=== PATIENT | male | born 1980 | race Caucasian/White ===

== ENCOUNTER 2019-06-22 00:22 | Inpatient (IN) | payer MEDICAID ==
[~2019-06-22] VITALS: Ht 182.9 cm; Wt 76.8 kg
[2019-06-22 01:30] VITALS: BP 128/70
--- NOTE | 2019-06-22 01:30 | NUR ---
MS REPAIRER SCREEN CRUSHER NOTES Received patient direct admit from [facility] via gurney accompanied by 2 underwear trimmer. Admitted to MS 321-1 due to L hand cellulitis under the service of Dr. Branham. Assisted patient to bed comfortably. Admission routine done. Noted ambulatory with steady gait. Belongings inventory completed by the assigned SENIOR UI UX DEVELOPER. Admission orders noted and carried out. Kept L hand clean, dry, and elevated. Provided snacks per patient request. R nares swab for MRSA surveillance done. Kept on bed clean, dry and comfortable. Call light within easy reach. Will continue to monitor accordingly.
[2019-06-22 01:47] VITALS: BP 128/70
[2019-06-22] MEDS ORDERED: MAG HYDROX/AL HYDROX/SIMETH 30 ML UDC PO PRN (03:30)
[2019-06-22] MEDS ORDERED: MAGNESIUM HYDROXIDE 30 ML UDC PO PRN (03:30)
[2019-06-22] MEDS ORDERED: ONDANSETRON HCL/PF 4 MG/2 ML VIAL IVP PRN (03:30)
[2019-06-22] MEDS ORDERED: ACETAMINOPHEN 325 MG TABLET PO PRN (03:30)
[2019-06-22] MEDS ORDERED: Z GUARD REMEDY 2 OZ OINT TP PRN (03:30)
[2019-06-22] MEDS ORDERED: VANCOMYCIN IV ONE (03:30)
[2019-06-22] MEDS ORDERED: NS 0.9% IV ONE (03:30)
[2019-06-22] MEDS ORDERED: CEFTRIAXONE 1 G in IV D5W 50 ML IV SCH ×3 (03:30→07:37)
--- NOTE | 2019-06-22 03:39 | NUR ---
MS RN NOTES Notified pharmacy patient received Rocephin 2gm and Vanco 1250gm from [facility]. Pharmacy adjusted meds schedule accordingly.
[2019-06-22 06:18] LABS: BASOPHILS # (AUTO) 0.1 /CMM (0.0-0.2); BASOPHILS % (AUTO) 0.8 % (0.0-2.0); EOSINOPHILS % (AUTO) 2.5 % (0.0-6.0); HEMATOCRIT 40 % (39-51); HEMOGLOBIN 13.2 g/dL (13.5-17.5); LYMPHOCYTES # (AUTO) 0.8 /CMM (0.8-4.8); LYMPHOCYTES % (AUTO) 7.4 % (20.0-44.0); MEAN CORPUSCULAR HGB CONC 34 g/dl (31.0-36.0); MEAN CORPUSCULAR VOLUME 92 fL (80-96); MONOCYTES # (AUTO) 0.8 /CMM (0.1-1.30); MONOCYTES % (AUTO) 7.8 % (2.0-12.0); NEUTROPHILS # (AUTO) 8.7 /CMM (1.8-8.9); NEUTROPHILS % (AUTO) 81.5 % (43.0-81.0); PLATELET COUNT (AUTO) 238 /CMM (150-450); RED BLOOD CELL COUNT(AUTO) 4.29 MIL/uL (4.5-6.0); WHITE BLOOD COUNT (AUTO) 10.7 K/uL (4.3-11.0)
--- NOTE | 2019-06-22 06:30 | NUR ---
MS RN CLOSING NOTES Patient asleep, easily awaken. On RA, no SOB/respiratory distress noted. All nursing needs attended. No new complaints made, no new unusualities noted. Kept on bed clean, dry and comfortable. Call light within easy reach. Endorsed to the next shift.
[2019-06-22 06:51] LABS: THYROID STIMULATING HORMONE 1.109 uIU/mL (0.358-3.74)
[2019-06-22 06:58] LABS: ALBUMIN 3.2 g/dL (3.4-5.0); BILIRUBIN,TOTAL 0.4 mg/dL (0.2-1.0); CREATININE 0.8 mg/dL (0.6-1.3); MAGNESIUM 1.8 mg/dL (1.8-2.4); POTASSIUM 3.7 mmol/L (3.5-5.1); TOTAL PROTEIN, SERUM 6.5 g/dL (6.4-8.2)
[2019-06-22] MEDS ORDERED: FEE PK DOSING 1 MIN EA MC ONE (07:30)
[2019-06-22 08:00] VITALS: BP 135/88
[2019-06-22] MEDS: HYDROCODONE/APAP 5/325MG 1 EACH TABLET PO PRN ×4 (08:07→22:44)
[2019-06-22] MEDS: VANCOMYCIN 1.25 GM in IV D5W 500 ML IV SCH ×2 (08:34→15:10)
--- NOTE | 2019-06-22 08:43 | NUR ---
c/o pain on Left middle finger, red, swollen, no oozage noted. NORCO one po 5/325mg given. Advised to call if [place] did not relieve pain. Getting first dose of VANCOMYCIN now, 1.25gm ivpb
--- NOTE | 2019-06-22 09:52 | NUR ---
WOUND CARE CONSULT: PT PRESENTS WITH SWELLING AND REDNESS TO LEFT MIDDLE FINGER, PRESENT ON ADMISSION. NO DRAINAGE NOTED. DEFER TO MD. WILL SEE PRN.
--- NOTE | 2019-06-22 12:07 | NUR ---
Social service consult requested by Dr. Rebolledo for homelessness. Per H &P, Pt. is a 39 y/o gentleman with four-day history of cellulitis to the extensor surface predominantly in Zone IV with extension to Zone III of his left middle finger. SW met with the pt. bedside. Pt. is alert and oriented x 4. Pt. appears clean and well-groomed. Pt. has tattoo sleeves on both his arms. Pt's mood is congruent. Pt. is cooperative and pleasant during the assessment. Pt. states he is homeless and has been for the past two months. Pt. was staying with friends prior to being homeless. SW offered pt. [facility] placement, however pt. declined. Pt. is interested in section 8 housing. SW informed pt. to sign up with [facility]. Pt. denies any drug, alcohol and tobacco use. Pt. denies any psychiatric diagnosis and hospitalizations. Pt. declined homeless [facility] and homeless resources. Pt. is interested in getting a TAP card upon discharge. TAP will be provided. No other social service needs are requested at this time. SW is available, if needed.
--- NOTE | 2019-06-22 13:30 | NUR ---
MS RN NOTES-- RECEIVED REPORT FROM REGISTRY NURSE. PT IS A/O X3, AFEBRILE. RESPIRATIONS ARE EVEN AND UNLABORED, NOT IN ANY ACUTE DISTRESS NOTED. PT C/O GENERALIZED PAIN 10/10 AND WILL MEDICATE ACCORDINGLY. PT DENIES ANY SOB, N/V. IV ACCESS TO RAC INTACT, NO INFILTRATION NOTED. DRESSING KEPT CLEAN AND DRY. SAFETY MEASURES ARE IN PLACE. INSTRUCTED PT TO USE CALL LIGHT WHEN ASSISTANCE IS NEEDED, CALL LIGHT IS LEFT WITHIN REACH. WILL MONITOR THROUGHOUT SHIFT FOR CONTINUITY OF CARE.
[2019-06-22] MEDS ORDERED: MORPHINE SULFATE INJ 2 MG/ML DISP.SYRIN IV STA (15:29)
--- NOTE | 2019-06-22 15:47 | NUR ---
MS RN NOTES-- DR. SHINE AT BEDSIDE PERFORMING I&D TO LEFT HAND.
--- NOTE | 2019-06-22 15:48 | NUR ---
MS RN NOTES-- RECEIVED ORDERS PER DR. SHINE FOR LEFT HAND XRAY.
[2019-06-22 16:03] VITALS: BP 120/72
--- NOTE | 2019-06-22 18:34 | NUR ---
MS RN CLOSING NOTES ALL DUE MEDS GIVEN, NEEDS MET AND RENDERED. PT IS A/O X4, AFEBRILE. RESPIRATIONS ARE EVEN AND UNLABORED, NOT IN ANY ACUTE DISTRESS NOTED. DENIES ANY PAIN AT THIS TIME, NO C/O SOB, N/V. IV ACCESS TO RAC INTACT, NO INFILTRATION NOTED. DRESSING KEPT CLEAN AND DRY. SAFETY MEASURES ARE IN PLACE. REMINDED PT TO USE CALL LIGHT WHEN ASSISTANCE IS NEEDED, CALL LIGHT IS LEFT WITHIN REACH.
[2019-06-22 20:00] VITALS: BP 119/74
--- NOTE | 2019-06-22 20:00 | NUR ---
MS RN NOTES RECEIVED PATIENT ASLEEP IN BED WITH NO DISTRESS NOTED. CALL LIGHT WITHIN REACH. PERIPHERAL LINE INTACT AND PATENT. BED IN LOW LOCK SETTING. ROOM FREE OF CLUTTER AND BELONGINGS KEPT NEAR BEDSIDE. WILL CONTINUE TO MONITOR.
[2019-06-22] MEDS: CEFTRIAXONE 1 G in IV D5W 50 ML IV SCH (21:16)
[2019-06-23] MEDS: VANCOMYCIN 1.25 GM in IV D5W 500 ML IV SCH ×3 (00:42→17:27)
[2019-06-23] MEDS: MORPHINE SULFATE INJ 2 MG/ML DISP.SYRIN IV PRN ×2 (03:37→09:17)
--- NOTE | 2019-06-23 06:46 | NUR ---
MS RN NOTES PATIENT ASLEEP IN BED WITH NO DISTRESS NOTED. CALL LIGHT WITHIN REACH. ALL DUE MEDS GIVEN ORDERED WITH NO ASE NOTED. NO FURTHER C/O PAIN OR DISCOMFORT. LEFT HAND DRESSING REMAINS CLEAN, DRY, AND INTACT. PERIPHERAL LINE INTACT AND PATENT. BED IN LOW LOCK SETTING. ROOM FREE OF CLUTTER AND BELONGINGS KEPT NEAR BEDSIDE. WILL CONTINUE TO MONITOR.
[2019-06-23 06:53] LABS: CALCIUM, SERUM 8.4 mg/dL (8.5-10.1); CREATININE 0.8 mg/dL (0.6-1.3); POTASSIUM 4.1 mmol/L (3.5-5.1)
[2019-06-23 06:55] LABS: BASOPHILS # (AUTO) 0.1 /CMM (0.0-0.2); BASOPHILS % (AUTO) 0.6 % (0.0-2.0); EOSINOPHILS % (AUTO) 2.8 % (0.0-6.0); HEMATOCRIT 44 % (39-51); HEMOGLOBIN 14.6 g/dL (13.5-17.5); LYMPHOCYTES # (AUTO) 1.6 /CMM (0.8-4.8); LYMPHOCYTES % (AUTO) 15.4 % (20.0-44.0); MEAN CORPUSCULAR HGB CONC 33 g/dl (31.0-36.0); MEAN CORPUSCULAR VOLUME 94 fL (80-96); MONOCYTES # (AUTO) 1.2 /CMM (0.1-1.30); MONOCYTES % (AUTO) 11.5 % (2.0-12.0); NEUTROPHILS # (AUTO) 7.4 /CMM (1.8-8.9); NEUTROPHILS % (AUTO) 69.7 % (43.0-81.0); PLATELET COUNT (AUTO) 228 /CMM (150-450); RED BLOOD CELL COUNT(AUTO) 4.72 MIL/uL (4.5-6.0); WHITE BLOOD COUNT (AUTO) 10.6 K/uL (4.3-11.0)
--- NOTE | 2019-06-23 07:30 | NUR ---
RN OPENING NOTES RECEIVED PATIENT IN BED RESTING. A/OX4, ABLE TO MAKE NEEDS KNOWN. NOT IN ANY FORM OF DISTRESS, NO SOB, DENIED PAIN OR DISCOMFORT AT THIS TIME. IV ACCESS INTACT AND PATENT. KEP TPATIENT SAFE AND COMFORTABLE. BED IN LOW/LOCKED POSITION, SIDERAILS UPX2, CALL LIGHT IN REACH. WILL CONTINUE TO MONIOTR ACCORDINGLY.
[2019-06-23 08:00] VITALS: BP 134/82
--- NOTE | 2019-06-23 09:10 | NUR ---
RN NOTES VANCO TROUGH TAKEN 06/22 @ 2300 WAS 10. VERIFIED WITH JORDY, PHARMACIST, IF IT'LL COVER FOR TODAY'S DOSE. PER JORDY, OK TO GIVE IT.
[2019-06-23] MEDS: LACTOBACILLUS RHAMNOSUS GG 1 EACH CAP.SPRINK PO SCH ×2 (09:17→17:27)
--- NOTE | 2019-06-23 10:00 | NUR ---
RN NOTES DRESSING CHANGED BY ALIZA SHINE.
[2019-06-23] MEDS: HYDROCODONE/APAP 5/325MG 1 EACH TABLET PO PRN ×2 (14:00→19:45)
[2019-06-23 16:00] VITALS: BP 120/75
--- NOTE | 2019-06-23 19:00 | NUR ---
RN MS OPENING NOTES RECEIVED PATIENT IN BED AWAKE ALERT AND ORIENTED X 4. RESPIRATIONS EVEN AND UNLABORED WITH EQUAL RISE AND FALL OF CHEST, IV SITE TO RIGHT AC #20 G SL NO REDNESS, NO INFILTRATION PRESENT, DENIES PAIN AT THIS TIME, LEFT HAND DRESSING IS CLEAN, DRY AND INTACT, ORIENTED TO STAFF AND CALL LIGHT AND KEPT WITHIN REACH, SAFETY PRECAUTIONS IN PLACE, LOW BED AND LOCKED, ALL NEEDS ATTENDED AT THIS TIME, WILL CONTINUE TO MONITOR AND ADDRESS NEEDS.
--- NOTE | 2019-06-23 19:34 | NUR ---
RN CLOSING NOTES PATIENT IN BED RESTING. ALL NEEDS ATTENDED AND PROVIDED. ALL DUE MEDS GIVEN ORDERED. KEPT PATIENT SAFE AND COMFORTABLE. BED IN LOW/LOCKED POSITION, SIDERAILS UPX2, CALL LIGHT IN REACH. ENDORSED TO NIGHT RN FOR EASTON.
--- NOTE | 2019-06-23 19:45 | NUR ---
RN MS NOTES PATIENT COMPLAINT OF PAIN TO LEFT HAND 05/29, REQUESTING FOR PAIN MEDICATION NORCO. PRN NORCO GIVEN ORDERED, WILL CONTINUE TO MONITOR FOR EFFECTIVENESS.
[2019-06-23 20:00] VITALS: BP 131/69
[2019-06-23] MEDS: CEFTRIAXONE 1 G in IV D5W 50 ML IV SCH (20:42)
[2019-06-24] MEDS: VANCOMYCIN 1.25 GM in IV D5W 500 ML IV SCH (00:33)
[2019-06-24] MEDS: HYDROCODONE/APAP 5/325MG 1 EACH TABLET PO PRN (00:39)
--- NOTE | 2019-06-24 00:39 | NUR ---
RN MS NOTES PATIENT C/O PAIN TO LEFT HAND 02/26 REQUESTING FOR NORCO PRN NORCO GIVEN ORDERED, WILL CONTINUE TO MONITOR FOR EFFECTIVENESS.
--- NOTE | 2019-06-24 06:36 | NUR ---
RN MS CLOSING NOTES PATIENT IN BED SLEEPING BUT EASILY AROUSABLE, ALERT AND ORIENTED X 4. RESPIRATIONS EVEN AND UNLABORED WITH EQUAL RISE AND FALL OF CHEST, IV SITE TO RIGHT AC #20 G SL NO REDNESS, NO INFILTRATION PRESENT, DENIES PAIN AT THIS TIME, LEFT HAND DRESSING IS CLEAN, DRY AND INTACT,CALL LIGHT KEPT WITHIN REACH, SAFETY PRECAUTIONS IN PLACE, LOW BED AND LOCKED, ALL NEEDS ATTENDED AT THIS TIME, WILL CONTINUE TO MONITOR AND ADDRESS NEEDS AND ENDORSE TO NEXT SHIFT, ABX GIVEN ORDERED, REMAINS COMFORTABLE AT THIS TIME.
[2019-06-24 07:36] LABS: CALCIUM, SERUM 8.6 mg/dL (8.5-10.1); CREATININE 0.8 mg/dL (0.6-1.3); POTASSIUM 4.1 mmol/L (3.5-5.1)
--- NOTE | 2019-06-24 07:52 | NUR ---
RN MS OPENING NOTES Patient received on room air, no sob noted, a/o x4 and denies pain at this time. Left middle finge remains with incision, dressing changed by . Julio C AC 20 SL. Bed at the lowest setting, call light within reach, side rails up x2.
[2019-06-24] MEDS: LACTOBACILLUS RHAMNOSUS GG 1 EACH CAP.SPRINK PO SCH (08:25)
--- NOTE | 2019-06-24 09:20 | NUR ---
RN MS NOTES Patient went AMA at this time. Removed IV line and patient tag. Patient left with his belongings stating that he might come back later. Patient signed AMA form.
== END 2019-06-24 09:37 | disposition left against medical advice (07) | DRG 383 ==
LOC: MED 01:09
PROVIDERS: ADMIT Nurse Practitioner Acute Care; ATTEND Nurse Practitioner Acute Care
DX: L03.012 Cellulitis of left finger (principal); E83.51 Hypocalcemia; D64.9 Anemia, unspecified; E88.09 Other disorders of plasma-protein metabolism, not elsewhere classified
CPT/HCPCS: 36415; 73130-TC; 80048-TC; 80053-TC; 80061-TC; 80202-TC; 83735-TC; 84443-TC; 85025-TC; 87040-TC; 87081-TC; A6403; G0378; J0696; J2270; J3370; J7030; J7060

== ENCOUNTER 2019-06-26 10:09 | Inpatient (IN) | payer MEDICAID ==
[~2019-06-26] VITALS: Ht 182.9 cm; Wt 75.7 kg
[2019-06-26] MEDS ORDERED: IV NS 0.9% 1,000 ML BAG IV ONE (11:00)
[2019-06-26] MEDS ORDERED: VANCOMYCIN 1 GM in IV D5W 250 ML IV ONE (11:00)
[2019-06-26] MEDS ORDERED: PIPERACILLIN /TAZOBACTAM 3.375 G in IV D5W 50 ML IV ONE (11:00)
--- NOTE | 2019-06-26 11:00 | NUR ---
PATIENT CAME BACK FOR FOLLOW-UP, LEFT AMA 3 DAYS AGO AFTER HE WAS ADMITTED FOR LEFT HAND CELLULITIS. ON ROOM AIR, BREATHING EVENLY AND UNLABORED. CONNECTED TO THE MONITOR AND PULSE OX. KEPT COMFORTABLE, WILL CONTINUE TO MONITOR ACCORDINGLY.
[2019-06-26 11:01] LABS: BASOPHILS # (AUTO) 0.1 /CMM (0.0-0.2); BASOPHILS % (AUTO) 1.3 % (0.0-2.0); EOSINOPHILS % (AUTO) 4.5 % (0.0-6.0); HEMATOCRIT 42 % (39-51); LYMPHOCYTES # (AUTO) 1.5 /CMM (0.8-4.8); LYMPHOCYTES % (AUTO) 20.1 % (20.0-44.0); MEAN CORPUSCULAR HGB CONC 33 g/dl (31.0-36.0); MEAN CORPUSCULAR VOLUME 93 fL (80-96); MONOCYTES # (AUTO) 0.9 /CMM (0.1-1.30); MONOCYTES % (AUTO) 11.2 % (2.0-12.0); NEUTROPHILS # (AUTO) 4.8 /CMM (1.8-8.9); NEUTROPHILS % (AUTO) 62.9 % (43.0-81.0); PLATELET COUNT (AUTO) 301 /CMM (150-450); RED BLOOD CELL COUNT(AUTO) 4.55 MIL/uL (4.5-6.0); WHITE BLOOD COUNT (AUTO) 7.7 K/uL (4.3-11.0)
[2019-06-26 11:08] LABS: CALCIUM, SERUM 9.1 mg/dL (8.5-10.1); POTASSIUM 3.9 mmol/L (3.5-5.1)
[2019-06-26 11:14] LABS: ALBUMIN 3.7 g/dL (3.4-5.0); BILIRUBIN,DIRECT 0.1 mg/dL (0.0-0.2); BILIRUBIN,TOTAL 0.2 mg/dL (0.2-1.0); TOTAL PROTEIN, SERUM 7.8 g/dL (6.4-8.2)
--- NOTE | 2019-06-26 12:32 | NUR ---
EPIC ON-CALL PAGED AGAIN
--- NOTE | 2019-06-26 12:46 | NUR ---
NURSING SUP GAVE BED 315-2.
--- NOTE | 2019-06-26 13:14 | NUR ---
PAGED [employer] FOR THIRD TIME.
--- NOTE | 2019-06-26 13:41 | NUR ---
MS RN NOTES PATIENT ARRIVED AT UNIT VIA WHEELCHAIR. REPORT RECEIVED FROM MIGUEL HART. PATIENT AWAKE, A/O X 4. NO ACUTE DISTRESS. DENIES ANY PAIN OR DISCOMFORT. NO CHANGES IN LOC NOTED. NOTED WITH WOUND ON LEFT MIDDLE FINGER, PATIENT REPORTS HAVING SPIDER BITE ON SITE. PATIENT ADMITTED UNDER MEDICAL SUPERVISION OF DR WALSH, AWARE OF PATIENT ARRIVAL. AWAITING ADMITTING ORDERS. PATIENT ORIENTED TO UNIT, STAFF, PLAN OF CARE AND VERBALIZED UNDERSTANDING. WILL CONTINUE TO MONITOR. BED LOCKED AND IN LOW POSITION. BILATERAL UPPER SIDE RAILS UP AND LOCKED. CALL LIGHT WITHIN EASY REACH
--- NOTE | 2019-06-26 13:59 | NUR ---
REPORT GIVEN TO JASMINE HART FOR EASTON PT WILL BE TRANSPORTED TO 3RD FLOOR
[2019-06-26] MEDS ORDERED: ACETAMINOPHEN 325 MG TABLET PO PRN (14:30)
[2019-06-26] MEDS ORDERED: MAG HYDROX/AL HYDROX/SIMETH 30 ML UDC PO PRN (14:30)
[2019-06-26] MEDS ORDERED: HYDROCODONE/APAP 5/325MG 1 EACH TABLET PO PRN (14:30)
[2019-06-26] MEDS ORDERED: MAGNESIUM HYDROXIDE 30 ML UDC PO PRN (14:30)
[2019-06-26] MEDS ORDERED: ZOLPIDEM TARTRATE 5 MG TABLET PO PRN (14:30)
[2019-06-26] MEDS ORDERED: Z GUARD REMEDY 2 OZ OINT TP PRN (14:30)
[2019-06-26] MEDS ORDERED: ONDANSETRON HCL/PF 4 MG/2 ML VIAL IVP PRN (14:30)
[2019-06-26] MEDS ORDERED: CLINDAMYCIN IV RTU IN D5W 900 MG/50 ML PIGGYBACK IV SCH (14:30)
[2019-06-26 16:00] VITALS: BP 130/84
[2019-06-26] MEDS: CLINDAMYCIN 900 MG in IV D5W 50 ML IV SCH ×2 (16:40→23:52)
--- NOTE | 2019-06-26 18:50 | NUR ---
MS RN NOTES PATIENT RESTING INSIDE ROOM. AWAKE, ALERT AND ORIENTED X 4, NO ACUTE DISTRESS. NO C/O PAIN OR DISCOMFORT. PATIENT KEPT CLEAN, DRY AND COMFORTABLE. IV INTACT AND PATENT. WOUND CARE PROVIDED TO LEFT MID FINGER AND COVERED WITH DRY DRESSING. PATIENT TOLERATED WOUND CARE WELL. WILL ENDORSE TO INCOMING SHIFT FOR EAST[place]. BED LOCKED AND IN LOW POSITION. BILATERAL UPPER SIDE RAILS UP AND LOCKED. CALL LIGHT WITHIN EASY REACH
--- NOTE | 2019-06-26 19:05 | NUR ---
MS RN NOTES RECEIVED PT IN BED AWAKE AND ABLE TO MAKE NEEDS KNOWN. PT A/O X3. RESPIRATIONS EVEN AND UNLABORED WITH NO S/S OF ACUTE DISTRESS OR SOB NOTED. NO C/O PAIN AT THIS TIME. PT NOTED WITH IV IN RHAND #20 G PATENT AND INTACT AND SL. SAFETY MEASURES IN PLACE WITH BED IN LOWEST LOCKED POSITION WITH SIDE RAILS UP X2. CALL LIGHT WITHIN REACH. WILL CONTINUE TO MONITOR.
[2019-06-26 20:46] VITALS: BP 109/62
[2019-06-27 07:09] LABS: HIV SCRN 4G wRFX Non Reactive (Non Reactive)
[2019-06-27 07:30] VITALS: BP 104/66
--- NOTE | 2019-06-27 07:33 | NUR ---
MS RN OPENING NOTE PATIENT IN BED RESTING COMFORTABLY. PATIENT BREATHING IS EVEN AND UNLABORED. PATIENT IN NO ACUTE DISTRESS. NO SOB NOTED. NO FACIAL GRIMACING NOTED. PATIENT HOB IS ELEVATED. SAFETY PRECAUTIONS IN PLACE. PATIENT BED IS LOCKED AND IN LOWEST POSITION. CALL LIGHT WITHIN REACH. WILL CONTINUE TO MONITOR.
[2019-06-27 07:49] LABS: BASOPHILS # (AUTO) 0.1 /CMM (0.0-0.2); HEMATOCRIT 42 % (39-51); LYMPHOCYTES # (AUTO) 1.3 /CMM (0.8-4.8); LYMPHOCYTES % (AUTO) 18.2 % (20.0-44.0); MEAN CORPUSCULAR HGB CONC 33 g/dl (31.0-36.0); MEAN CORPUSCULAR VOLUME 92 fL (80-96); MONOCYTES # (AUTO) 0.8 /CMM (0.1-1.30); MONOCYTES % (AUTO) 11.4 % (2.0-12.0); NEUTROPHILS # (AUTO) 4.8 /CMM (1.8-8.9); NEUTROPHILS % (AUTO) 64.4 % (43.0-81.0); PLATELET COUNT (AUTO) 278 /CMM (150-450); RED BLOOD CELL COUNT(AUTO) 4.57 MIL/uL (4.5-6.0); WHITE BLOOD COUNT (AUTO) 7.4 K/uL (4.3-11.0)
--- NOTE | 2019-06-27 07:57 | NUR ---
MS RN NOTES PT IN BED AWAKE AND ABLE TO MAKE NEEDS KNOWN. PT A/O X3. RESPIRATIONS EVEN AND UNLABORED WITH NO S/S OF ACUTE DISTRESS OR SOB NOTED THROUGHOUT SHIFT. NO C/O PAIN AT THIS TIME. PT NOTED WITH IV IN RHAND #20 DISLODGED AND PULLED OUT. ENDORSED TO ONCOMING NURSE. SAFETY MEASURES IN PLACE WITH BED IN LOWEST LOCKED POSITION WITH SIDE RAILS UP X2. CALL LIGHT WITHIN REACH. WILL ENDORSE TO ONCOMING NURSE FOR EASTON.
[2019-06-27] MEDS: CLINDAMYCIN 900 MG in IV D5W 50 ML IV SCH ×3 (08:00→23:33)
[2019-06-27 08:15] LABS: CALCIUM, SERUM 8.5 mg/dL (8.5-10.1); MAGNESIUM 1.9 mg/dL (1.8-2.4); PHOSPHORUS 3.8 mg/dL (2.5-4.9); POTASSIUM 4.3 mmol/L (3.5-5.1)
[2019-06-27 16:00] VITALS: BP 107/56
--- NOTE | 2019-06-27 19:05 | NUR ---
MS RN NOTES RECEIVED PT IN BED SLEEPING BUT EASILY AWOKEN VERBALLY OR BY TOUCH. PT A/O X3 AND ABLE TO MAKE NEEDS KNOWN. RESPIRATIONS EVEN AND UNLABORED WITH NO S/S OF ACUTE DISTRESS OR SO NOTED. NO COMPLAINTS OF PAIN AT THIS TIME. SAFETY MEASURES IN PLACE WITH BED IN LOWEST LOCKED POSITION WITH SIDE RAILS UP X2. CALL LIGHT WITHIN REACH. WILL CONTINUE TO MONITOR.
--- NOTE | 2019-06-27 19:21 | NUR ---
MS RN CLOSING NOTES PATIENT IN BED SLEEPING, RESTING COMFORTABLY. PATIENT IN NO ACUTE DISTRESS. NO SOB NOTED. PATIENT BREATHING IS EVEN AND UNLABORED. NO FACIAL GRIMACING NOTED. PATIENT HOB IS SLIGHTLY ELEVATED. SAFETY PRECAUTIONS IN PLACE. PATIENT KEPT, CLEAN, DRY, AND COMFORTABLE. WOUND CARE PROVIDED ORDERED. PATIENT BED IS LOCKED AND IN LOWEST POSITION. CALL LIGHT WITHIN REACH. WILL ENDORSE CARE TO PM SHIFT FOR E[facility]ON.
[2019-06-27 20:00] VITALS: BP 116/59
[2019-06-28] MEDS: CLINDAMYCIN 900 MG in IV D5W 50 ML IV SCH ×2 (06:13→14:02)
--- NOTE | 2019-06-28 06:42 | NUR ---
MS RN NOTES PT IN BED SLEEPING BUT EASILY AWOKEN VERBALLY OR BY TOUCH. PT A/O X3 AND ABLE TO MAKE NEEDS KNOWN. RESPIRATIONS EVEN AND UNLABORED WITH NO S/S OF ACUTE DISTRESS OR SOB NOTED THROUGHOUT SHIFT. NO COMPLAINTS OF PAIN AT THIS TIME. PT WITH LAC #22G PATENT AND INTACT AND SL. SAFETY MEASURES IN PLACE WITH BED IN LOWEST LOCKED POSITION WITH SIDE RAILS UP X2. CALL LIGHT WITHIN REACH. WILL ENDORSE TO ONCOMING NURSE FOR EASTON.
[2019-06-28 07:14] LABS: BASOPHILS # (AUTO) 0.1 /CMM (0.0-0.2); BASOPHILS % (AUTO) 0.8 % (0.0-2.0); EOSINOPHILS % (AUTO) 6.4 % (0.0-6.0); HEMATOCRIT 45 % (39-51); HEMOGLOBIN 14.8 g/dL (13.5-17.5); LYMPHOCYTES # (AUTO) 1.5 /CMM (0.8-4.8); LYMPHOCYTES % (AUTO) 23.1 % (20.0-44.0); MEAN CORPUSCULAR HGB CONC 33 g/dl (31.0-36.0); MEAN CORPUSCULAR VOLUME 93 fL (80-96); MONOCYTES # (AUTO) 0.7 /CMM (0.1-1.30); MONOCYTES % (AUTO) 10.2 % (2.0-12.0); NEUTROPHILS % (AUTO) 59.5 % (43.0-81.0); PLATELET COUNT (AUTO) 303 /CMM (150-450); RED BLOOD CELL COUNT(AUTO) 4.87 MIL/uL (4.5-6.0); WHITE BLOOD COUNT (AUTO) 6.7 K/uL (4.3-11.0)
[2019-06-28 07:21] LABS: CALCIUM, SERUM 8.6 mg/dL (8.5-10.1); CREATININE 0.8 mg/dL (0.6-1.3); POTASSIUM 4.1 mmol/L (3.5-5.1)
--- NOTE | 2019-06-28 07:26 | NUR ---
RN OPENING NOTE PT WAS RECEIVED IN BED AT LOWEST AND LOCKED POSITION WITH SIDE RAILS UP X2, A/O X3 BREATHING EVEN AND UNLABORED ON RA WITH NO S/S OF ANY DISTRESS OR PAIN NOTED AT THIS TIME, IV IS PATENT AND INTACT, S/P DEBRIDEMENT DONE 06/27 BY BUCK RAMON, SAFETY PRECAUTIONS IN PLACE, CALL LIGHT WITHIN REACH, WILL MONITOR ACCORDINGLY
[2019-06-28 08:00] VITALS: BP 94/62
--- NOTE | 2019-06-28 10:00 | NUR ---
RN NOTE LAB CALLED REGARDING RPR TEST, INFORMED THAT TEST IS AUTOMATICALLY CANCELLED AFTER ORDER IS PLACED, PARKS WORKER STATED SHE WILL ORDER IT ON HER SIDE
[2019-06-28 16:00] VITALS: BP 100/59
--- NOTE | 2019-06-28 17:14 | NUR ---
AMA NOTE PT LEFT AMA AT THIS TIME IN STABLE CONDITION. A/O X4 BREATHING EVEN AND UNLABORED WITH NO PAIN OR DISTRESS. PT REFUSED FOR PHOTOS OF WOUNDS TO BE TAKEN AND STATED THAT HE NEEDED TO LEAVE BECAUSE HIS GF WAS JUST DIAGNOSED WITH CANCER AND HE NEEDS TO BE THERE WITH HER. HE WAS INFORMED THAT HE SHOULD NOT LEAVE AMA BECAUSE THE DOCTOR IN THE MORNING INFORMED HIM THAT HE NEEDED ONE MORE COURSE OF IV ABX AND THAT HE WOULD OST LIKELY BE DISCHARGED TOMORROW. PT WAS INFORMED AND EDUCATED ABOUT LEAVING AMA AND VERBALIZED UNDERSTANDING BUT STILL ADAMANT ABOUT LEAVING. PT IV AND ID BAND WERE REMOVED AND PT LEFT AMA AT THIS TIME IN HIS PRIVATE CAR. Addendum: 06/28/19 at 1725 by JAYLON MCKEON RN Unique Id: [id number]
== END 2019-06-28 17:10 | disposition left against medical advice (07) | DRG 364 ==
LOC: ER 10:15 → MED 13:10
PROVIDERS: ADMIT Family Medicine; ATTEND Family Medicine
PROC: 0KBD0ZZ Excision of Left Hand Muscle, Open Approach (ICD-10-PCS; principal; 2019-06-27)
DX: L03.114 Cellulitis of left upper limb (principal); N46.9 Male infertility, unspecified; Z87.891 Personal history of nicotine dependence
CPT/HCPCS: 36415; 80048-TC; 80061-TC; 80076-TC; 83605-TC; 83735-TC; 84100-TC; 85025-TC; 85730-TC; 86592; 86694; 86695; 86696; 87040-TC; 87081-TC; G0378; J2543; J3370; J3490; J7030; J7060

== ENCOUNTER 2019-08-08 02:24 | Emergency (ER) | payer MEDICAID ==
[~2019-08-08] VITALS: Ht 182.9 cm; Wt 84.8 kg
--- NOTE | 2019-08-08 03:10 | NUR ---
BIBS FOR EVALUATION OF R AXILLARY ABSCESS. NO SKIN OPENING.
--- NOTE | 2019-08-08 03:46 | NUR ---
Patient discharged to home in stable condition. Rx and Written and verbal after care instructions given. Patient verbalizes understanding of instruction.
[2019-08-08 03:54] VITALS: BP 129/85
== END 2019-08-08 03:46 | disposition home or self-care (01) ==
LOC: ER 02:26
DX: L73.9 Follicular disorder, unspecified (principal)
CPT/HCPCS: 99283; A6403 ×2; A6407

== ENCOUNTER 2020-01-03 02:49 | Emergency (ER) | payer MEDICAID ==
[~2020-01-03] VITALS: Ht 182.9 cm; Wt 79.4 kg
[2020-01-03 04:41] VITALS: BP 111/78
--- NOTE | 2020-01-03 04:53 | NUR ---
PATIENT CAME TO ER BED 1 C/O RIGHT HAND PAIN. PATIENT STATES THAT HE RECEIVED A BUG BITE THAT CAUSED HIM TO HAVE A BUMP AND PAIN ON THE RIGHT HAND. AAOX4. NO SOB. BREATHING EVENLY AND UNLABORED ON ROOM AIR.
--- NOTE | 2020-01-03 05:54 | NUR ---
Patient discharged to home in stable condition. Written and verbal after care instructions given. Patient verbalizes understanding of instruction.
== END 2020-01-03 05:54 | disposition home or self-care (01) ==
LOC: ER 02:56
DX: L03.113 Cellulitis of right upper limb (principal)